=== PATIENT | female | born 1955 | race Caucasian/White ===

== ENCOUNTER 2017-01-26 07:34 | Day surgery (SDC) | payer OTHER ==
[~2017-01-26] VITALS: Ht 154.9 cm; Wt 52.6 kg
[~2017-01-26 07:34] MED LIST: 0.9% Sodium Chloride 1,000 ML IV SCH; B2/V1TAB PO; BUTA1CAP16 PO; DICY10CA56 PO; ESTR2TAB2 PO; FLAX100038 PO; LACT1CAP73 PO; SOLI5TAB2 PO; Sodium Chloride LOK Flush 10 mL Syringe IV PRN; TOPI-59 PO; fentaNYL-PF 50 mCg/mL 2 mL Inj IVPUSH PRN
[2017-01-26 08:25] VITALS: BP 114/74; PULSE 62; RESP 16; O2SAT 98
[2017-01-26 08:55] VITALS: BP 101/67; PULSE 66; RESP 16; O2SAT 98
[2017-01-26 09:05] VITALS: BP 104/63; PULSE 77; RESP 16; O2SAT 98
[2017-01-26 09:15] VITALS: BP 115/75; PULSE 77; RESP 16; O2SAT 100
--- NOTE | 2017-01-26 09:17 | ENDO ---
[address] [address] ENDOSCOPY PROCEDURE PATIENT: SHANE SCHULTE : 1955 MR#: [id number] ADMIT: 01/26/2017 JOB ID: [id number] PROCEDURE: Esophagogastroduodenoscopy with biopsy, colonoscopy with biopsy. PREOPERATIVE DIAGNOSIS(ES): 1. Stomach pain. 2. Diarrhea. POSTOPERATIVE DIAGNOSIS(ES): 1. Normal upper endoscopy, status post biopsy. 2. Moderate sigmoid diverticulosis. 3. External and internal hemorrhoids. ANESTHESIA: Fentanyl 100 mcg, Versed 4 mg IV administered. COMPLICATIONS: None. BLOOD LOSS: Minimal. DESCRIPTION OF PROCEDURE: After risks and benefits were explained to the patient, informed consent was obtained. After anesthesia was administered, upper endoscope was inserted into the mouth, intubated into the esophagus, stomach, second portion of duodenum. Mucosa carefully examined. After procedure was done, the scope was withdrawn and the procedure terminated. A colonoscope was inserted per rectum to the terminal ileum. Mucosa carefully examined. Prep of the patient was excellent. After the procedure was done, the scope was withdrawn and the procedure terminated. FINDINGS: Upon inspection of the esophagus, the esophagus was normal without masses, ulcers, or lesions. Z-line located 40 cm from incisors. Upon entry into the stomach, the stomach was normal without masses, ulcers, lesions. Retroflexion of the duodenal bulb, first and second portion were normal. Biopsies taken from the antrum and body of the stomach. Upon inspection of the anus, there was evidence of small external hemorrhoids that were seen, nonbleeding. Throughout the entire examination, there was mild sigmoid diverticulosis. No polyps or masses were seen. Biopsies taken at terminal ileum and right side of the colon. Retroflexion showed small internal hemorrhoids. IMPRESSION: 1. Normal upper endoscopy, status post biopsy. 2. Small external and internal hemorrhoids. 3. Moderate sigmoid diverticulosis. RECOMMENDATIONS: 1. High-fiber diet. 2. Await pathology results. 3. Follow up in GI Clinic as needed.
--- NOTE | 2017-01-27 11:16 | PATH ---
SURGICAL PATHOLOGY Attending Physician:Enrrique Neumann MD CASE STATUS: Signed Out PATIENT NAME: SHANE SCHULTE PID: [id number] : 1955 DATE COLLECTED:01/26/2017 15:44 SPECIMEN: 1: Duodenum, Biopsy 2: Gastric, Biopsy 3: Gastric, Biopsy 4: Small Intestine/Bowel, Biopsy 5: Colon, Biopsy CLINICAL HISTORY: 1). DUODENAL BIOPSY 2). GASTRIC ANTRUM 3). GASTRIC BODY 4). TERMINAL ILEUM BIOPSY 5). RANDOM COLON BIOPSY FINAL DIAGNOSIS: A. Duodenum, Biopsy: Normal duodenal mucosa. No significant inflammation identified. No evidence of malignancy or dysplasia. Negative for features of celiac disease. B. Gastric Antrum, Biopsy: Gastric antrum with mild chronic gastritis. Negative for Helicobacter organisms. Negative for intestinal metaplasia. No evidence of malignancy or dysplasia. C. Gastric Body, Biopsy: Gastric corpus with mild chronic gastritis. Negative for Helicobacter organisms. Negative for intestinal metaplasia. No evidence of malignancy or dysplasia. D. Terminal Ileum, Biopsy: Normal small bowel mucosa. No significant inflammation identified. No evidence of malignancy or dysplasia. E. Random Colon Biopsies: Normal colonic mucosa. No significant inflammation identified. No evidence of malignancy or dysplasia. ICD10: K29.70 GROSS DESCRIPTION: The specimen is received in two formalin filled containers labeled with the patient's name. 1). The specimen is sublabeled "duodenum" and consists of 3 portions of tissue which aggregate to 0.3 x 0.3 x 0.2 CM. The specimen is entirely submitted in cassette 1A. 2). The specimen is sublabeled "gastric antrum" and consists of 2 portions of tissue which aggregate to 0.4 x 0.3 x 0.2 CM. The specimen is entirely submitted in cassette 2A. 3). The specimen is sublabeled "gastric body" and consists of 2 portions of tissue which aggregate to 0.5 x 0.3 x 0.2 CM. The specimen is entirely submitted in cassette 3A. 4). The specimen is sublabeled "terminal ileum" and consists of 2 portions of tissue which aggregate to 0.3 x 0.2 x 0.2 CM. The specimen is entirely submitted in cassette 4A. 5). The specimen is sublabeled "random colon" and consists of multiple portions of tissue which aggregate to 0.4 x 0.4 x 0.3 CM. The specimen is entirely submitted in cassette 5A. 01/26/[address] [facility] ICD-9 CODES: CPT CODES: 1: 82361 2: 92292 3: 65490 4: 97209 5: 80234 Electronically Signed Out Kody Mcclendon MD [facility] [address], [place] [address] Technical component performed at [facility], [address], [place], [address]
== END 2017-01-26 23:59 | disposition home or self-care (01) ==
LOC: END 07:34
PROVIDERS: ATTEND Internal Medicine Gastroenterology
DX: R19.7 Diarrhea, unspecified (principal); K59.00 Constipation, unspecified; R14.0 Abdominal distension (gaseous); R10.84 Generalized abdominal pain; K64.8 Other hemorrhoids; K64.4 Residual hemorrhoidal skin tags; K57.30 Diverticulosis of large intestine without perforation or abscess without bleeding; K29.50 Unspecified chronic gastritis without bleeding; E78.00 Pure hypercholesterolemia, unspecified; R35.0 Frequency of micturition; Z90.710 Acquired absence of both cervix and uterus; Z79.890 Hormone replacement therapy
CPT/HCPCS: 43239; 45380; 88305; 99153; G0500; J7030

== ENCOUNTER 2017-05-22 13:21 | Inpatient (IN) | payer OTHER ==
[~2017-05-22] VITALS: Ht 154.9 cm; Wt 52.6 kg
[~2017-05-22 13:21] MED LIST changes: -0.9% Sodium Chloride 1,000 ML IV SCH; -Sodium Chloride LOK Flush 10 mL Syringe IV PRN; -fentaNYL-PF 50 mCg/mL 2 mL Inj IVPUSH PRN
[2017-05-22 14:10] VITALS: BP 116/75; PULSE 69; RESP 16; O2SAT 96
[2017-05-22] MEDS ORDERED: MULT-1018 PO (14:52)
[2017-05-22] MEDS ORDERED: ASCO-294 PO (14:52)
[2017-05-22] MEDS ORDERED: Ondansetron 2 mg/mL 2 mL Inj IVPUSH PRN (15:05)
[2017-05-22] MEDS ORDERED: Polyethylene Glycol (PEG) 17 Gm Powder PO PRN (15:05)
[2017-05-22] MEDS ORDERED: Alum-Mag Hydrox-Simeth 30 mL Suspension PO PRN (15:05)
[2017-05-22] MEDS ORDERED: Piperacillin-Tazo 3.375 Gm Inj 3.375 GM in Dextrose 5% Minibag Plus 50 ML IV ONE (15:15)
[2017-05-22] MEDS: 0.9% Sodium Chloride 1,000 ML IV SCH (15:18)
[2017-05-22] MEDS ORDERED: Aspirin-Caffeine-Butalbital Tablet PO PRN (17:50)
--- NOTE | 2017-05-22 17:59 | PCM.HPMED ---
Subjective Date of Service May 22, 2017 Primary Provider: Admitting Physician: Jabari Velasquez MD Primary Care Physician: Julianne Martinez MD Attending Physician: Jabari Velasquez MD Chief Complaint: Abdominal pain History of Present Illness: Patient is a 61-year-old female with past medical history most significant for diverticulosis, for which she chronically suffers from intermittent bloody diarrhea. She denies ever having a previous episode of diverticulitis however diverticulosis was noted on workup of bloody stools. Otherwise she is very healthy reports no other significant medical history aside from migraine headaches. This morning however she awoke having severe abdominal pain is not typical also reported some chills, pressure recorded no fever. Appetite has been poor and she has been nauseated. Does note eating meat either hamburgers or states for the last 3 days, and minimal vegetables which she admits is made stools relatively hard. Otherwise she can think of no inciting factors for this condition. Otherwise she is feeling well. 9 any chest pains palpitations or shortness of breath. . Review of Systems: A 10 point review of systems was conducted entirely negative excepting pertinent positives and negatives included in above history of present illness Allergies Coded Allergies: No Known Drug Allergies (Verified Allergy, Unknown, 01/25/17) Home Medications Topamax Multivitamin Bentyl Vitamin C Probiotic supplement Doses as per medical reconciliation PMH Diverticulosis Migraine headaches Surgical History Hysterectomy Family History Mother and sister both suffer from diverticulosis Social History Hx Alcohol Use: No Hx Substance Use: No Smoking Status: Never Smoker Exam Vital Signs Vital Sign - Last Date Time Temp Pulse Resp B/P Pulse Ox O2 Delivery O2 Flow Rate FiO2 05/22/17 14:10 36.4 69 16 116/75 96 Room Air General: Alert, Oriented X3, Cooperative, Mild Distress Mouth: Mucous Membr Moist/[place] Chest & Lungs: Clear to auscultation & percussion Cardiovascular: Regular Rate/Rhythm, No Murmurs/Rubs/Gallops Abdomen: Tender, Distended, Other ( with some high-pitched clicks and gurgles) Neurological: Grossly Neurologically Intact Lab and Diagnostics Result Diagram: 05/22/17 9036 Assessment & Plan 61-year-old female past medical history significant for diverticulosis admitted directly from urgent care for acute episode of diverticulitis #Diverticulosis, acute diverticulitis - Initiate intravenous fluid therapy at this time - Advance diet as tolerated currently will place patient on clears - We will start antibiotic therapy, Zosyn at this time - Patient appears chronically stable but will consider reimaging and possible surgical consult for an acute decompensation - Pain control with IV morphine currently achieving good relief of symptoms #Migraine headaches - Continued her home Topamax - When necessary medications as needed for exacerbation Disposition: Pending clinical stabilization advancement of diet, may consider transition to oral antibiotic therapy and discharge home 2 days. Pain Evaluation: Adequate Pain Control GI Prophylaxis: Not indicated VTE Mechanical Devices: Intermittant Pneumatic CD Resuscitation Status: CPR: Attempt Resuscitation Time spent 55 minutes Oleksandr Perez DO May 22, 2017 17:59
[2017-05-22] MEDS ORDERED: [UNRECOGNIZED DRUG - OTHER] PO PRN (18:27)
--- NOTE | 2017-05-22 18:27 | NUR ---
Admission Direct admit from urgent care to room 3018. Oriented to room and call light. IV placed and fluids initiated, maintaining on RA. Abdominal pain 8 and meds admin. Admission assessments and med rec completed by admission RN. Provider notified of arrival and assessed.
[2017-05-22] MEDS: Lactobacillus Rhamnosus 10 Bil Unit Capsule PO SCH (19:42)
[2017-05-22 21:20] VITALS: BP 117/70; PULSE 81; RESP 16; O2SAT 95
[2017-05-22] MEDS: Piperacillin-Tazo 3.375 Gm Inj 3.375 GM in Dextrose 5% Minibag Plus 50 ML IV SCH (22:34)
[2017-05-23] MEDS: 0.9% Sodium Chloride 1,000 ML IV SCH ×3 (01:06→21:02)
--- NOTE | 2017-05-23 06:19 | NUR ---
Pain c/o abd pain x1 this shift. Prn morphine and heat provided and effective. No further complaints noted this shift.
[2017-05-23 06:21] VITALS: BP 107/68; PULSE 67; RESP 16; O2SAT 97
[2017-05-23] MEDS ORDERED: oxyCODONE-Acetamin 5-325 mg Tablet PO PRN (08:50)
[2017-05-23] MEDS: Lactobacillus Rhamnosus 10 Bil Unit Capsule PO SCH (09:52)
[2017-05-23] MEDS: Piperacillin-Tazo 3.375 Gm Inj 3.375 GM in Dextrose 5% Minibag Plus 50 ML IV SCH (09:52)
[2017-05-23 10:13] VITALS: BP 125/76; PULSE 64; RESP 16; O2SAT 100
[2017-05-23] MEDS: Vancomycin 125 mg Oral Capsule PO SCH ×2 (14:45→21:00)
--- NOTE | 2017-05-23 14:55 | PCM.PNMED ---
Subjective Date of Service May 23, 2017 Subjective pt is feeling better, pain is subsiding no n/v, no BM yet Later, pt had BM, stool PCR positive for c.diff, vancomycin by mouth was started Exam Vital Signs Vital Sign - Last Date Time Temp Pulse Resp B/P Pulse Ox O2 Delivery O2 Flow Rate FiO2 05/23/17 06:21 36.8 67 16 107/68 97 Room Air Intake and Output 05/22/17 05/22/17 05/23/17 Cumulative From/Thru 15:00 23:00 07:00 05/22/17 14:10 - 05/23/17 06:59 Intake Total 370 ml 550 ml 920 ml Output Total 800 ml 1550 ml 2350 ml Balance -430 ml -1000 ml -1430 ml Intake Oral 370 ml 550 ml 920 ml IV Total 0 ml 0 ml Output Urine Total 800 ml 1550 ml 2350 ml # Voids 1 1 # Bowel Movements 0 0 0 Exam NAD, comfortably laying down on the bed no JVD, MMM, no LAD RRR, nl s1, s2 no mrg CTAB, no w,c S,ND,suprapubic td, BS+ warm, no edema, pulses 2/2 IVs and Medications Medications Reviewed: Medications were reviewed in detail Lab and Diagnostics Result Diagram: 05/22/17 7158 Assessment & Plan 61-year-old female past medical history significant for diverticulosis admitted directly from urgent care for acute episode of diverticulitis acute, active #Clostridium difficile colitis, POA, patient was initially started on Zosyn for possible infectious diverticulitis. CT abd 05/22 showed diverticulitis of the proximal sigmoid colon, without associated abscess -We will switch Zosyn to vancomycin 125mg q6 today -Encourage oral hydration -Enteric contact precaution -Pain control with morphine iv and percocet prn chronic, stable #Migraine headaches - Continued her home Topamax - When necessary medications as needed for exacerbation Disposition: Pending clinical stabilization advancement of diet, may consider transition to oral antibiotic therapy and discharge home 2 days. GI Prophylaxis: Not indicated VTE Mechanical Devices: Intermittant Pneumatic CD Resuscitation Status: CPR: Attempt Resuscitation Time spent 35 minutes Felicitas Puga MD May 23, 2017 09:04
--- NOTE | 2017-05-23 15:00 | NUR ---
GI/CDIFF Pt had large soft/loose BM. PCR sample sent to lab. KEM called to report CDIFF positive. MD aware, pt informed. Contact Enteric Precautions started. Plan of care adjusted. Pt was hoping to go home but after explaining pt understands and willing to comply. Pt does report pain has greatly diminished and feeling much better and looking forward to eating food. Tolerated PO intake w/o upset/pain.
--- NOTE | 2017-05-23 16:28 | NUR ---
Social Work-screening/ multidisciplinary rounds: Data:EMR Reviewed. Pt is a 61 y/o female who was admitted on 05/22/17 for diverticulitis per H&P. Pt's insurance is [employer] and PCP is Julianne Martinez MD. EMR Reviewed. Pt resides at home where she remains independent with ADLS. Pt has been up independent in her room. No discharge need identified. SW will continue to follow if needs arise. Assessment:Pt who is independent at baseline. Plan:pt to discharge home when medically stable via POV. No discharge need identified. SW will continue to follow if needs arise. RASHEEDA Stinson
[2017-05-23 16:41] VITALS: BP 112/65; PULSE 62; RESP 18; O2SAT 97
[2017-05-23 21:25] VITALS: BP 97/56; PULSE 64; RESP 18; O2SAT 98
[2017-05-24 04:29] VITALS: BP 110/70; PULSE 62; RESP 16; O2SAT 98
[2017-05-24] MEDS: Vancomycin 125 mg Oral Capsule PO SCH ×3 (04:29→14:07)
[2017-05-24] MEDS: 0.9% Sodium Chloride 1,000 ML IV SCH (06:23)
[2017-05-24 06:58] LABS: EOSINOPHILS % (AUTO) 5.5 % (0-5); MONOCYTES % (AUTO) 11.4 % (4-12); Mean Corpuscular Hemoglobin 29.5 pg (27.0-35.0); Mean Corpuscular Volume 90.5 fL (81-100); NEUTROPHILS % (AUTO) 51.9 % (40-74); Platelet Count 108 bil/L (150-400)
[2017-05-24 06:59] LABS: BASOPHILS % (AUTO) 0.6 % (0-3)
[2017-05-24] MEDS: Lactobacillus Rhamnosus 10 Bil Unit Capsule PO SCH (08:53)
[2017-05-24] MEDS ORDERED: VANC125C3 PO (10:38)
--- NOTE | 2017-05-24 11:52 | NUR ---
Social Work: Discharge/Multidisciplinary Rounds D: EMR reviewed. Pt is on day 2 of hospitalization. Per rounds, pt has expressed that she is no longer experiencing pain. Per MD, pt is medically stable for discharge home today. Pt has been up independent in her room. No discharge need identified. SW will continue to follow if needs arise. A: Pt who is independent at baseline. P: Pt to discharge home today via POV. No discharge need identified. SW will continue to follow if needs arise. RASHEEDA Cloud
--- NOTE | 2017-05-24 12:39 | PCM.DIMED ---
Discharge Instructions Date of Service May 24, 2017 Dates of Hospitalization May 22, 2017 at 13:53 Discharge Diagnosis Discharge Diagnosis acute dx acute c.diff colitis, diverticulitis chronic dx migraine possible IBS Medication Instructions Additional med instructions Please continue vancomycin 125mg every 6hours for 13more days Diet Discharge Diet: No restrictions Activity Discharge Activity: No restrictions Call your provider Call your provider for: Fever or Chills, Excessive diarrhea Patient Instructions Patient Instructions You were hospitalized with abdominal pain and loose stools, found to have bowel infection. Please note that you have to continue medication as instructed above. Please monitor your stools, when it's loose, it is still contagious, Please keep your hands clean. Please follow up with your primary doctor in 2weeks Follow-up Provider: Julianne Martinez MD Follow-up with PCP in: 2 weeks Felicitas Puga MD May 24, 2017 12:34
--- NOTE | 2017-05-24 14:20 | NUR ---
Discharge Reviewed discharge paperwork, care notes and medications with pt - disclaimer signed. IV DCd intact, all belongings with pt. Pt denies pain and SOB. Declines WC escort out of unit, walking out on foot. Leaving by self, pt drove self to hospital. Pt leaving before getting paper prescription signed, unwilling to wait. paged but currently in meeting. Will have fax script to pharmacy. Pt aware to check for availability and follow up. Pt walking out strong and steady.
--- NOTE | 2017-05-25 22:32 | PCM.DC.MED ---
Discharge Summary Date of Service May 24, 2017 Dates of Hospitalization Date of Hospital Admission May 22, 2017 at 13:53 Date of Discharge: May 24, 2017 Providers: Admitting Physician: Oleksandr Perez DO Primary Care Physician: Julianne Martinez MD Attending Physician: Felicitas Horta MD Diagnosis at Time of Discharge Diagnosis at Time of Discharge acute dx acute c.diff colitis, diverticulitis chronic dx migraine possible IBS Procedures XRay, CTs & MRIs PROCEDURE: CT ABDOMEN AND PELVIS WITH CONTRAST ([id number]) INDICATIONS: ABDOMINAL PAIN TECHNIQUE: After the administration of oral and intravenous contrast, 5 mm thick sections acquired from the diaphragms to the symphysis. 5 mm thick coronal and sagittal reformats were performed. For radiation dose reduction, the following was used : automated exposure control, adjustment of mA and/or kV according to patient size. COMPARISON: [facility], CT, CT ABD PELVIS W CON, 09/17/2016, 15:17. FINDINGS: Image quality: Excellent. ABDOMEN: Lung bases: Lung bases are clear. Heart size is normal. Solid organs: Liver and spleen are normal in size and enhancement. Gallbladder is within normal limits. Biliary system is non-dilated. Pancreas enhances normally. No adrenal nodules. Kidneys are normal in size and enhancement, without hydronephrosis. Peritoneum and bowel: Stomach is nondistended. There is mild distention of several fluid filled small bowel loops within the low pelvis centrally. Small bowel is otherwise within normal limits. Appendix is mildly prominent in size, but demonstrates no evidence of inflammation. The colon demonstrates moderate diffuse stool, and is nondistended. Diverticulosis of the descending and sigmoid colon is present. There is moderate thickening of the mid sigmoid colon within the left hemipelvis. Moderate fat stranding surrounds the thickened segment of sigmoid colon. No free fluid or air. Nodes and vessels: No retroperitoneal or mesenteric adenopathy. Aorta and inferior vena cava are normal in caliber. Miscellaneous: No ventral hernias. PELVIS: Genitourinary: Bladder wall thickness is normal. Miscellaneous: No inguinal hernias or adenopathy. Bones: No suspicious bony lesions. No vertebral body compression fractures. IMPRESSION: 1. Diverticulitis of the proximal sigmoid colon, without associated abscess. There is mild adjacent small bowel distention, consistent with regional ileus. 2. Normal appendix. Dictated by: Ciara Somers M.D. on 05/22/2017 at 12:32 Approved by: Ciara Somers M.D. on 05/22/2017 at 12:35 Brief History HPI obtained by Dr. Perez on 05/22 Patient is a 61-year-old female with past medical history most significant for diverticulosis, for which she chronically suffers from intermittent bloody diarrhea. She denies ever having a previous episode of diverticulitis however diverticulosis was noted on workup of bloody stools. Otherwise she is very healthy reports no other significant medical history aside from migraine headaches. This morning however she awoke having severe abdominal pain is not typical also reported some chills, pressure recorded no fever. Appetite has been poor and she has been nauseated. Does note eating meat either hamburgers or states for the last 3 days, and minimal vegetables which she admits is made stools relatively hard. Otherwise she can think of no inciting factors for this condition. Otherwise she is feeling well. 9 any chest pains palpitations or shortness of breath. . Hospital Course 61-year-old female past medical history significant for diverticulosis admitted directly from urgent care for acute episode of diverticulitis acute, active #Clostridium difficile colitis, patient was initially started on Zosyn for possible infectious diverticulitis. CT abd 05/22 showed diverticulitis of the proximal sigmoid colon, without associated abscess . Later, pt was found to have C.diff on stool PCR, switched Zosyn to vancomycin 125mg q6 today. pt had minimal sx and loose stools , eating well with good appetite, no fever, HD stable, deemed safe for d/c chronic dx #Migraine headaches, continued home Topamax Exam Vital Signs (Last) Date Time Temp Pulse Resp B/P Pulse Ox O2 Delivery O2 Flow Rate FiO2 05/24/17 04:29 36.8 62 16 110/70 98 Room Air Exam pt was examined on the day of d/c Test 05/22/17 16:25 05/24/17 06:10 Hold Purple Top Tube Received (Received) Hold Blue Top Tube Received (Received) Hold Red Top Tube Received (Received) Hold Hou Top Tube Received (Received) White Blood Count 3.4th/mm3 (3.8-10.1) Red Blood Count 3.69mil/mm3 (3.90-5.20) Hemoglobin 10.9g/dL (12.0-15.6) Hematocrit 33.4% (35.0-46.0) Mean Corpuscular Volume 90.5fL (81-100) Mean Corpuscular Hemoglobin 29.5pg (27.0-35.0) Mean Corpuscular Hemoglobin Concent 32.6% (32.0-37.0) Red Cell Distribution Width 14.1% (12.3-15.4) Platelet Count 108bil/L (150-400) Neutrophils (%) (Auto) 51.9% (40-74) Lymphocytes (%) (Auto) 30.6% (14-46) Monocytes (%) (Auto) 11.4% (4-12) Eosinophils (%) (Auto) 5.5% (0-5) Basophils (%) (Auto) 0.6% (0-3) Sodium Level 143mEq/L (134-144) Potassium Level 4.4mEq/L (3.5-5.2) Chloride Level 110mEq/L (97-108) Carbon Dioxide Level 22mmol/L (18-29) Blood Urea Nitrogen 12mg/dL (6-24) Creatinine 0.70mg/dL (0.57-1.00) Estimat Glomerular Filtration Rate 123mL/min (>59) Glucose Level 94mg/dL (60-99) Calcium Level 8.5mg/dL (8.5-10.1) Total Bilirubin 0.3mg/dL (0.0-1.2) Aspartate Amino Transf (AST/SGOT) 12U/L (0-50) Alanine Aminotransferase (ALT/SGPT) 8U/L (0-32) Alkaline Phosphatase 48U/L (25-165) Total Protein 5.3g/dL (6.4-8.4) Albumin 3.3g/dL (3.4-5.0) Discharge Medications Discharge Medications Ascorbate Calcium (Vitamin C) 500 Mg Tablet 500 MG PO DAILY (Reported) B2/Vit A,C & E/Lut/Zeaxanth/Mn (Icaps Tablet) 1 Each Tablet.er 1 EACH PO DAILY ( Reported) Dicyclomine (Bentyl) 10 Mg Capsule 20 MG PO QID (Reported) Lactobacillus Combo No.11 (Probiotic) 1 Each Cap.sprink 1 EACH PO DAILY ( Reported) Multivitamin (Multi Vitamin Daily) 1 Each Tablet 1 EACH PO DAILY (Reported) Topiramate (Topiramate) 25 Mg Tablet 25 MG PO DAILY (Reported) Vancomycin (Vancomycin) 125 Mg Capsule 125 MG PO Q6 Prescribed by: FELICITAS HORTA MD As needed Butalbital/Aspirin/Caff 50-325-40 mg (Fiorinal 50-325-40 mg) 1 Each Capsule 1 CAPSULE PO Q4H PRN PRN For Pain (Reported) Additional med instructions Please continue vancomycin 125mg every 6hours for 13more days Followup Plan Disposition: home Discharge Diet: No restrictions Discharge Activity: No restrictions Patient Instructions You were hospitalized with abdominal pain and loose stools, found to have bowel infection. Please note that you have to continue medication as instructed above. Please monitor your stools, when it's loose, it is still contagious, Please keep your hands clean. Please follow up with your primary doctor in 2weeks Follow-up Provider: Julianne Martinez MD Follow-up with PCP in: 2 weeks Time spent 65min Felicitas Horta MD May 25, 2017 22:32
== END 2017-05-24 16:10 | disposition home or self-care (01) | DRG 372 ==
LOC: UNDOADMOB 13:21 → MPC 13:21 → OBSVTOIN 13:53 → MPC 13:53
PROVIDERS: ADMIT Family Medicine; ATTEND Family Medicine
DX: A04.7 Enterocolitis due to Clostridium difficile (principal); K57.32 Diverticulitis of large intestine without perforation or abscess without bleeding; G43.909 Migraine, unspecified, not intractable, without status migrainosus